=== PATIENT | female | born 1985 | race Caucasian/White ===

== ENCOUNTER 2020-01-20 22:25 | Emergency (ER) | payer BC, SELFPAY ==
[2020-01-20] MEDS ORDERED: Ondansetron PF 4 MG/2 ML Vial ONE (22:50)
[2020-01-20] MEDS ORDERED: Morphine 2 MG/ML SYRINGE ONE (22:50)
[2020-01-20 22:53] LABS: #Basophils 0.1 thou/uL (0.0-0.2); #Eosinphils 0.3 thou/uL (0.0-0.7); #Lymphocytes 5.7 thou/uL (1.20-3.40); #Monocytes 0.9 thou/uL (0.11-0.59); #Neutrophils 4.6 thou/uL (1.40-6.50); %Basophils 1.1 % (0.0-1.0); %Eosinophils 2.6 % (0.0-10.0); %Lymphocytes 49.4 % (21.0-51.0); %Monocytes 7.5 % (0.0-10.0); %Neutrophils 39.4 % (42.0-75.0); Hemoglobin 14.2 g/dL (12.0-16.0); Mean Corpuscular HGB CONC 32.1 g/dL (32.0-36.0); Mean Corpuscular Hemoglobin 30.7 pg (27.0-31.0); Mean Corpuscular Volume 95.8 fL (78.0-98.0); Mean Platelet Volume 8.8 fL (7.4-10.4); Platelet Count 228 thou/uL (130-400); RBC Distribution Width 12.5 % (11.5-14.5); Red Blood Cell (RBC) Count 4.63 mill/uL (4.20-5.40); White Blood Cell (WBC) Count 11.6 thou/uL (4.8-10.8)
[2020-01-20 23:04] LABS: INR-International Normal Ratio 0.9; PTT 36.3 sec (22.9-36.1); Prothrombin Time 11.8 sec (12.0-14.7)
[2020-01-20 23:14] LABS: ALT (SGPT) 25 U/L (8-55); AST (SGOT) 24 U/L (5-34); Albumin 4.5 g/dL (3.5-5.0); Alkaline Phosphatase 48 U/L (40-110); Anion Gap 18 mmol/L (10-20); BUN (Urea Nitrogen) 12 mg/dL (7.0-18.7); Bilirubin, Total 0.1 mg/dL (0.2-1.2); Calc. Creatinine Clearance 0 mL/min (70-130); Calcium 9.4 mg/dL (7.8-10.44); Carbon Dioxide 21 mmol/L (22-29); Chloride 105 mmol/L (98-107); Estimated GFR-MDRD 88; Globulin 2.8 g/dL (2.4-3.5); Glucose 99 mg/dL (70-105); Potassium 4.2 mmol/L (3.5-5.1); Protein, Total 7.3 g/dL (6.0-8.3); Sodium 140 mmol/L (136-145)
[2020-01-20] MEDS ORDERED: Promethazine HCl 25 MG/ML VIAL ONE (23:20)
[2020-01-20] MEDS ORDERED: Sodium Chloride 0.9% 1,000 ML ONE (23:20)
[2020-01-20] MEDS ORDERED: Pantoprazole 40 MG VIAL ONE (23:49)
[2020-01-21] MEDS ORDERED: Ondansetron PF 4 MG/2 ML Vial ONE (00:41)
== END 2020-01-21 00:55 | disposition home or self-care (01) ==
LOC: NAV ERS 22:25
DX: T63.061A Toxic effect of venom of other North and South American snake, accidental (unintentional), initial encounter (principal); F17.210 Nicotine dependence, cigarettes, uncomplicated
CPT/HCPCS: 36415; 80053; 85025; 85384; 85610; 85730; 96365; 96375; 96376; C9113; J2270; J2405; J2550; J7050